=== PATIENT | male | born 1985 | race Caucasian/White ===

== ENCOUNTER 2022-09-09 13:04 | Inpatient (IN) | payer MEDICAID, SELFPAY ==
[2022-09-09 13:42] VITALS: BP 113/78; PULSE 77; RESP 16; TEMP 36.4; O2SAT 100
[2022-09-09 13:46] VITALS: BMI 28.7
[2022-09-09 14:00] VITALS: BP 136/89; PULSE 89; RESP 17; TEMP 37.2; O2SAT 98
[2022-09-09 20:45] LABS: Amphetamines Screen Urine Positive (Negative); Barbiturates Screen Urine Negative (Negative); Benzodiazepines Screen Urine Negative (Negative); Cocaine Screen Urine Negative (Negative); Opiate Screen Urine Negative (Negative); PCP Screen Urine Negative (Negative); THC Screen Urine Negative (Negative)
[2022-09-09 22:00] VITALS: BP 127/84; PULSE 78; RESP 18; TEMP 37.2; O2SAT 100
[2022-09-10 06:00] VITALS: RESP 15
--- NOTE | 2022-09-10 08:17 | P.NPUHP_ITS ---
Providers/Chief Complaint Admitting Physician: Yoni Dos Santos MD Chief Complaint: SI HPI NPU History of Present Illness Juan Cox is a 37 year old male who presented to an outside hospital via ambulance for evaluation of anxiety and suicidal ideation. He reported having panic attack started an hour prior to his presentation with plan to OD or cut his wrist. He endorsed depression nonadherence to medication as well. He endorsed methamphetamine use as well as marijuana. An affidavit was penned and he was transferred to [facility] and admitted to the neuropsychiatric unit for definitive treatment of those issues. His UDS was positive for amphetamines and opiates. Patient presented today continuing his presentation from yesterday evening essentially lying in bed and isolating. Later in the day he was more active as he reported feeling overheated in his room and that he was having breathing problems reporting a history of asthma. He was a very poor historian and had moments reported agitation and not being able to breathe and not being able to answer questions. The gist of his story was that he was homeless and without access to his medication and reported that keeping his me dication while living on the streets is hard but we talked about giving him a backpack and he reported that could be quite helpful. He very much downplayed his addiction history but did acknowledge smoking cigarettes, drinking alcohol and using marijuana though his UDS was negative for cannabis. He reports that history of methamphetamine use and downplayed his positive methamphetamine result in his UDS. He reports that he has multiple inpatient hospitalizations and a diagnosis of schizophrenia, bipolar and other things he reported he was resistant to answering a lot of historical questions about family and his parents etc. however did report that his mother was a major support and that she might allow him to stay there. He also reported that he could be open to going to a jail but that he was without his ID so that would be a hard fix. We discussed the treatment team working to possibly find a way for him to get his ID and he reported that he would be open on Tuesday or Tuesday to pursue this. We made it clear that things like that do not happen over the weekend. We discussed his medication regimen and that he has been on Zyprexa and he is also had Invega when I asked about history with Invega and we discussed the risks, benefits and alternatives of initiating 6 mg daily and he understood and agreed to proceed as is documented in this note. He was very goal-directed at that point trying to make sure that we had made an agreement that we were going to help him get the [place] in helping get his ID and he started coming up with other possibilities that could be in play if we assisted him in that manner. Meds NPU Home Medications Medication Instructions Recorded Confirmed Last Taken Type bupropion HCl 150 mg 24 hr tablet, 150 mg PO DAILY 09/10/22 09/10/22 Unknown History extended release (Wellbutrin XL) divalproex 500 mg tablet,delayed 500 mg PO BID 09/10/22 09/10/22 Unknown History release (Depakote) haloperidol 5 mg tablet 5 mg PO BID 09/10/22 09/10/22 Unknown History paroxetine HCl 20 mg tablet (Paxil) 20 mg PO DAILY 09/10/22 09/10/22 Unknown History Allergies Allergy/AdvReac Type Severity Reaction Status Date / Time aripiprazole [From [employer]] Allergy Unknown Unknown Verified 09/09/22 16:49 Mental Status Exam MSE Comments: This is an overweight white male in hospital scrubs with limited grooming and eye contact. Significant tattooing on his exposed skin. No abnormal movements except for significant psychomotor retardation. Semicooperative with exam in mild to moderate distress. But a vibe as if extreme distress was a heartbeat away. Speech was limited and normal rate and decreased volume. Mood described as anxious, affect congruent. Thought process mostly organized. Thought content: Patient endorses some suicidal thoughts but none currently and denied homicidal ideation, there were no delusions reported but some paranoia and possible persecutory delusions noted, he denied auditory or visual hallucinations but reports that that happens. Attention and concentration were limited and memory was somewhat reliable but none were formally tested. He is alert and oriented x3. Insight, judgment and impulse control are impaired. Vitals/I&O/Wt Last Vital Signs Temp 98.9 F 09/09/22 22:00 Pulse 78 09/09/22 22:00 Resp 15 09/10/22 06:00 BP 127/84 09/09/22 22:00 Pulse Ox 100 09/09/22 22:00 O2 Del Method Room Air 09/09/22 22:00 Weight last 48 hrs Weight 90.718 kg Data NPU 09/09/22 Unknown A&P Assessment and plan (1) Methamphetamine use disorder, severe: (2) History of schizophrenia: (3) Homeless: Plan This is a 37-year-old white male with a reported history of schizophrenia as well as depression and active addiction who presents homeless and irritable reporting an openness to possibly try different medication, but endorsing adherence issues. 1. Continue current medication. Start Invega 6 mg p.o. every morning. 2. Continue every 15 minute checks for safety. 3. Encourage individual, group and milieu therapies. 4. Encourage sober living treatment after discharge at the highest level of care to which he is willing to commit. Involuntary Hold Information 96 Hour Hold: 96 Hour Involuntary Admission: No Attestations NPU Medical Necessity Statement*: Inpatient hospitalization is medically necessary and the clinically appropriate intervention at this time. We will monitor medications and make changes as indicated. He will be in the hospital for over 2 midnights. Likely length of stay 4 to 6 days. Coding Level of Care Code Acute Code for Chg Fwd Diagnoses Methamphetamine use disorder, severe F15.20 History of schizophrenia Z86.59 Homeless Z59.00
[2022-09-10 12:10] VITALS: BP 135/84; PULSE 83; RESP 18; TEMP 36.5; O2SAT 97
[2022-09-10] MEDS: OLANZapine 5 mg ODT PO (17:43)
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
[2022-09-10 17:51] VITALS: BP 123/84; PULSE 83; RESP 20; TEMP 36.8; O2SAT 100
[2022-09-10] MEDS: haloperidol 5 mg Tablet PO (18:32)
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
[2022-09-10 22:00] VITALS: RESP 14
[2022-09-11 06:00] VITALS: RESP 15
[2022-09-11 14:00] VITALS: BP 120/75; PULSE 88; RESP 18; TEMP 36.6; O2SAT 97
--- NOTE | 2022-09-11 17:25 | P.NPUPN_ITS ---
Subjective NPU Subjective: Patient presented today reporting that he was doing a little better. The extreme agitation from yesterday's not expressed or notable or reported by staff. He was back to reporting that he was for a plan of him being assisted in getting his ID on hopefully Tuesday with the plan of him considering the discharge options then likely being a intermediate given his limited resources. Mental Status Exam MSE Comments: This is an overweight white male in hospital scrubs with limited grooming and eye contact. Significant tattooing on his exposed skin. No abnormal movements except for significant psychomotor retardation. More cooperative with exam in mild distress. Speech was limited and normal rate and decreased volume. Mood described as anxious, affect congruent. Thought process mostly organized. Thought content: Patient endorses some suicidal thoughts but none currently and denied homicidal ideation, there were no delusions reported but some paranoia and possible persecutory delusions noted, he denied auditory or visual hallucinations but reports that that happens. Attention and concentration were limited and memory was somewhat reliable but none were formally tested. He is alert and oriented x3. Insight and judgment limited and impulse control is impaired. Vitals/I&O/Wt Last Vital Signs Temp 97.8 F 09/11/22 14:00 Pulse 88 09/11/22 14:00 Resp 18 09/11/22 14:00 BP 120/75 09/11/22 14:00 Pulse Ox 97 09/11/22 14:00 O2 Del Method Room Air 09/10/22 22:00 Data NPU 09/09/22 Unknown A&P Assessment and plan (1) Methamphetamine use disorder, severe: (2) History of schizophrenia: (3) Homeless: Plan This is a 37-year-old white male with a reported history of schizophrenia as well as depression and active addiction who presents homeless and irritable reporting an openness to possibly try different medication, but endorsing adherence issues. 1. Continue current medication. Started Invega 6 mg p.o. every morning. 2. Continue every 15 minute checks for safety. 3. Encourage individual, group and milieu therapies. 4. Encourage sober living treatment after discharge at the highest level of care to which he is willing to commit. Involuntary Hold Information 96 Hour Hold: 96 Hour Involuntary Admission: No Attestations NPU Medical Necessity Statement*: Inpatient hospitalization is medically necessary and the clinically appropriate intervention at this time. We will monitor medications and make changes as indicated. Likely length of stay 3-5 days. Coding Level of Care Code Acute Code for Chg Fwd Diagnoses Methamphetamine use disorder, severe F15.20 History of schizophrenia Z86.59 Homeless Z59.00
[2022-09-11 22:00] VITALS: RESP 18
--- NOTE | 2022-09-12 08:30 | W.PM.NPUPNS ---
Subjective NPU Subjective: Patient presents today reporting that he is still feeling on track for plan to assist him in getting his ID tomorrow and assist him in getting to some facility. He reports that he is getting Caught up with his sleep which is helpful and endorsed being very appreciative of the unit helping him through this challenging time. Mental Status Exam MSE Comments: This is an overweight white male in hospital scrubs with limited grooming and eye contact. Significant tattooing on his exposed skin. No abnormal movements except for significant psychomotor retardation. More cooperative with exam in mild distress. Speech was limited and normal rate and decreased volume. Mood described as a little better, affect congruent. Thought process mostly organized. Thought content: Patient endorses some suicidal thoughts but none currently and denied homicidal ideation, there were no delusions reported but some paranoia and possible persecutory delusions noted, he denied auditory or visual hallucinations but reports that that happens. Attention and concentration were limited and memory was somewhat reliable but none were formally tested. He is alert and oriented x3. Insight and judgment limited and impulse control is impaired. Vitals/I&O/Wt Last Vital Signs Temp 97.8 F 09/11/22 14:00 Pulse 88 09/11/22 14:00 Resp 18 09/11/22 22:00 BP 120/75 09/11/22 14:00 Pulse Ox 97 09/11/22 14:00 O2 Del Method Room Air 09/10/22 22:00 Data NPU 09/09/22 Unknown A&P Assessment and plan (1) Methamphetamine use disorder, severe: (2) History of schizophrenia: (3) Homeless: Plan This is a 37-year-old white male with a reported history of schizophrenia as well as depression and active addiction who presents homeless and irritable reporting an openness to possibly try different medication, but endorsing adherence issues. 1. Continue current medication. Started Invega 6 mg p.o. every morning. 2. Continue every 15 minute checks for safety. 3. Encourage individual, group and milieu therapies. 4. Encourage sober living treatment after discharge at the highest level of care to which he is willing to commit. Involuntary Hold Information 96 Hour Hold: 96 Hour Involuntary Admission: No Attestations NPU Medical Necessity Statement*: Inpatient hospitalization is medically necessary and the clinically appropriate intervention at this time. We will monitor medications and make changes as indicated. Likely length of stay 2-4 days. Coding Level of Care Code Acute Code for Chg Fwd Diagnoses Methamphetamine use disorder, severe F15.20 History of schizophrenia Z86.59 Homeless Z59.00
[2022-09-12] MEDS: paliperidone ER 6 mg Tablet PO (12:53)
[2022-09-12 14:00] VITALS: BP 114/73; PULSE 97; RESP 18; TEMP 36.7; O2SAT 99
[2022-09-12] MEDS: hyDROXYzine 25 mg Capsule 50 MG PO (17:21)
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
[2022-09-12] MEDS: OLANZapine 5 mg ODT PO (18:37)
[2022-09-12 20:19] VITALS: BP 131/91; PULSE 91; RESP 18; TEMP 36.2; O2SAT 96
[2022-09-13] MEDS: paliperidone ER 6 mg Tablet PO (08:54)
[2022-09-13 14:00] VITALS: BP 126/80; PULSE 100; RESP 18; TEMP 36.8; O2SAT 97
--- NOTE | 2022-09-13 15:22 | W.PM.NPUPNS ---
Subjective NPU Subjective: Patient presented today reporting that he had opportunity to speak to his mother and his he is agreeable to coming to our clinic. This takes the need for him having a ID immediately off the table but we discussed still giving him a document that will allow him to get his ID. He will not have any access to transportation so we agreed to discharge first thing in the morning. Mental Status Exam MSE Comments: This is an overweight white male in hospital scrubs with adequate grooming and eye contact. Significant tattooing on his exposed skin. No abnormal movements. More cooperative with exam in no acute distress. Speech was more spontaneous and normal rate and volume. Mood described as a little better, affect congruent. Thought process mostly organized. Thought content: Patient denied suicidal or homicidal ideation, there were no delusions reported and resolving paranoia noted, he denied auditory or visual hallucinations. Attention and concentration were limited and memory was vet. More reliable but none were formally tested. He is alert and oriented x3. Insight and judgment limited, but improving and impulse control is limited. Vitals/I&O/Wt Last Vital Signs Temp 98.5 F 09/13/22 21:16 Pulse 81 09/13/22 21:16 Resp 18 09/13/22 21:16 BP 121/71 09/13/22 21:16 Pulse Ox 98 09/13/22 21:16 O2 Del Method Room Air 09/12/22 20:19 Data NPU 09/09/22 Unknown A&P Assessment and plan (1) Methamphetamine use disorder, severe: (2) History of schizophrenia: (3) Homeless: Plan This is a 37-year-old white male with a reported history of schizophrenia as well as depression and active addiction who presents homeless and irritable reporting an openness to possibly try different medication, but endorsing adherence issues. 1. Continue current medication. Started Invega 6 mg p.o. every morning. We will discuss further long-acting injectable would be something he considered 2. Continue every 15 minute checks for safety. 3. Encourage individual, group and milieu therapies. 4. Encourage sober living treatment after discharge at the highest level of care to which he is willing to commit. Involuntary Hold Information 96 Hour Hold: 96 Hour Involuntary Admission: No Attestations NPU Medical Necessity Statement*: Inpatient hospitalization is medically necessary and the clinically appropriate intervention at this time. We will monitor medications and make changes as indicated. Likely length of stay 1-3 days. Coding Level of Care Code Acute Code for Chg Fwd Diagnoses Methamphetamine use disorder, severe F15.20 History of schizophrenia Z86.59 Homeless Z59.00
[2022-09-13 21:16] VITALS: BP 121/71; PULSE 81; RESP 18; TEMP 36.9; O2SAT 98
[2022-09-14] MEDS: paliperidone ER 6 mg Tablet PO (09:04)
[2022-09-14 11:03] VITALS: BP 121/71; PULSE 81; RESP 18; TEMP 36.9; O2SAT 98
--- NOTE | 2022-09-14 11:56 | W.PM.NPUDCS ---
Diagnoses at Discharge Discharge Diagnosis (1) Methamphetamine use disorder, severe: Status: Acute (2) History of schizophrenia: Status: Acute (3) Homeless: Status: Acute Reason for Visit Reason for Visit: SI Brief History: Juan Cox is a 37 year old male who presented to an outside hospital via ambulance for evaluation of anxiety and suicidal ideation.? He reported having panic attack started an hour prior to his presentation with plan to OD or cut his wrist.? He endorsed depression nonadherence to medication as well.? He endorsed methamphetamine use as well as marijuana.? An affidavit was penned and he was transferred to [facility] and admitted to the neuropsychiatric unit for definitive treatment of those issues.? His UDS was positive for amphetamines and opiates.? Patient presented today continuing his presentation from yesterday evening essentially lying in bed and isolating.? Later in the day he was more active as he reported feeling overheated in his room and that he was having breathing problems reporting a history of asthma.? He was a very poor historian and had moments reported agitation and not being able to breathe and not being able to answer questions.? The gist of his story was that he was homeless and without access to his medication and reported that keeping his medication while living on the streets is hard but we talked about giving him a backpack and he reported that could be quite helpful.? He very much downplayed his addiction history but did acknowledge smoking cigarettes, drinking alcohol and using marijuana though his UDS was negative for cannabis.? He reports that history of methamphetamine use and downplayed his positive methamphetamine result in his UDS.? He reports that he has multiple inpatient hospitalizations and a diagnosis of schizophrenia, bipolar and other things he reported he was resistant to answering a lot of historical questions about family and his parents etc. however did report that his mother was a major support and that she might allow him to stay there.? He also reported that he could be open to going to a nursing home but that he was without his ID so that would be a hard fix.? We discussed the treatment team working to possibly find a way for him to get his ID and he reported that he would be open on Tuesday or Tuesday to pursue this.? We made it clear that things like that do not happen over the weekend.? We discussed his medication regimen and that he has been on Zyprexa and he is also had Invega when I asked about history with Invega and we discussed the risks, benefits and alternatives of initiating 6 mg daily and he understood and agreed to proceed as is documented in this note.? He was very goal-directed at that point trying to make sure that we had made an agreement that we were going to help him get the [place] in helping get his ID and he started coming up with other possibilities that could be in play if we assisted him in that manner. Hospital Course Hospital Course Patient slowly acclimated to the individual, group and milieu therapies provided.? He presented on concerns of homelessness and being off of his medication secondary to and or having his medications taken. He was started on Invega 6 mg daily and plan to possibly start/restart his Wellbutrin as well. He cannot go to a nursing home without getting his ID and we were working with the social work team on crates to get his ID given the limited access to documents that he has. Just prior to discharge with those plans his mother decided she would assist, to some degree and he was discharged to her. His irritability improved and he showed modest improvement.? He was able to contract for safety outside of the hospital prior to discharge.? At the outside hospital, he had routine laboratory studies which were within normal limits except for a few outliers.? Additionally he had general medical evaluation which was also within normal limits and revealed no new acute processes. Discharge Summary At the time of discharge, he denied any lethality and psychosis was resolving.? Mood and anxiety were well managed and she endorsed a plan to avoid all drugs of abuse, and follow-up with the recommended post hospital services.? He was evaluated and deemed to be absent credible lethality and had received the maximum benefit from an inpatient hospitalization, so was discharged. Involuntary Hold Information 96 Hour Hold: 96 Hour Involuntary Admission: No Mental Status Exam MSE Comments: This is an overweight white male in hospital scrubs with adequate grooming and eye contact. Significant tattooing on his exposed skin. No abnormal movements. More cooperative with exam in no acute distress. Speech was more spontaneous and normal rate and volume. Mood described as a little better, affect congruent. Thought process mostly organized. Thought content: Patient denied suicidal or homicidal ideation, there were no delusions reported and resolving paranoia noted, he denied auditory or visual hallucinations. Attention and concentration were limited and memory was vet. More reliable but none were formally tested. He is alert and oriented x3. Insight and judgment limited, but improving and impulse control is limited. Discharge Data Studies Completed and Pending: Laboratory Results Creatinine Cancelled 09/09/22 Unknown Specific [place] Cancelled 09/09/22 Unknown Urine pH Cancelled 09/09/22 Unknown Urine Oxidant Cancelled 09/09/22 Unknown Urine Opiates Scre en Negative ng/mL (N egative) 09/09/22 Unknown Urine Opiates Leve l Cancelled 09/09/22 Unknown Urine Oxycodone Cancelled 09/09/22 Unknown U Methadone [place] Cancelled 09/09/22 Unknown Barbiturates Cancelled 09/09/22 Unknown Ur Barbiturates Sc reen Negative ng/mL (N egative) 09/09/22 Unknown Phencyclidine (PCP ) Cancelled 09/09/22 Unknown Ur Phencyclidine S crn Negative ng/mL (N egative) 09/09/22 Unknown Amphetamines Cancelled 09/09/22 Unknown Ur Amphetamines Sc reen Positive ng/mL (N egative) H 09/09/22 Unknown Benzodiazepines Cancelled 09/09/22 Unknown U Benzodiazepines Scrn Negative ng/mL (N egative) 09/09/22 Unknown Cocaine Metabolite Cancelled 09/09/22 Unknown Urine Cocaine Scre en Negative ng/mL (N egative) 09/09/22 Unknown U Marijuana (THC) Screen Negative ng/mL (N egative) 09/09/22 Unknown U Marijuana [place]ites Cancelled 09/09/22 Unknown Abn Spec Valid Juan Daniel g Scn Cancelled 09/09/22 Unknown Urine Drug Screen Note Cancelled 09/09/22 Unknown Ur Drug Screen Com ment Cancelled 09/09/22 Unknown Vitals: Last Vital Signs Temp 98.5 F 09/14/22 11:03 Pulse 81 09/14/22 11:03 Resp 18 09/14/22 11:03 BP 121/71 09/14/22 11:03 Pulse Ox 98 09/14/22 11:03 O2 Del Method Room Air 09/12/22 20:19 Discharge Plan Discharge Patient Disposition: Home Condition: Stable Prescriptions: New paliperidone 6 mg Tablet Extended Release 24 Hr 6 mg PO DAILY 30 Days Qty: 30 1RF Continued Wellbutrin XL 150 mg tablet extended release 24 hr 150 mg PO DAILY Discontinued paroxetine HCl [Paxil] 20 mg tablet 20 mg PO DAILY haloperidol 5 mg tablet 5 mg PO BID divalproex [Depakote] 500 mg tablet,delayed release (DR/EC) 500 mg PO BID Discharge Orders: Discharge Order (Routine); Ordered 09/14/22 Ordered By: Yoni Dos Santos Referrals: Donovan Rand [Referring] - 10/13/22 8:20 am (Arrive 15 minutes early to complete needed paperwork.) Discharge Diet: Regular Discharge Activity: Resume usual activity Patient Instructions: Schizophrenia (GEN), Help Prevent Suicide (GEN), Opioid Safety Discharge Attestations NPU Time Spent in Discharge Care*: less than 30 min Specific Discharge Activities: Specific discharge activities: educating patient, discussing with lining caser/social workers/dc planners, documenting/other paperwork and evaluating patient/reviewing data Coding Level of Care Code Acute [facility] [place] note Diagnoses Methamphetamine use disorder, severe F15.20 History of schizophrenia Z86.59 Homeless Z59.00
== END 2022-09-14 13:08 | disposition home or self-care (01) | DRG 897 ==
PROVIDERS: Admitting Provider Psychiatry & Neurology Psychiatry; Visit Provider Psychiatry & Neurology Psychiatry
DX: F15.20 Other stimulant dependence, uncomplicated (principal); R45.851 Suicidal ideations; F11.10 Opioid abuse, uncomplicated; F12.10 Cannabis abuse, uncomplicated; Z59.02 Unsheltered homelessness; F17.210 Nicotine dependence, cigarettes, uncomplicated; F32.A Depression, unspecified; F20.9 Schizophrenia, unspecified; Z91.148 Patient's other noncompliance with medication regimen for other reason
CPT/HCPCS: 80306; 94664; 97150; 97165; 99238